=== PATIENT | male | born 1970 | race Caucasian/White ===

== ENCOUNTER 2018-07-30 20:17 | Emergency (ER) | payer OTHER ==
--- NOTE | 2018-07-30 20:22 | EDPHY ---
H & P Time Seen by Provider: 07/30/18 20:23 HPI/ROS: CHIEF COMPLAINT: Nausea and vomiting HISTORY OF PRESENT ILLNESS: Patient is insulin-dependent diabetes felt well this morning and had a normal sugar. When he got home at 5:30 p.m. He was over 400 and then he started having nausea and vomiting for about 2 hr at around 6: 00 p.m.. Glucose was greater than 600 at that time. It is not associated with hematemesis or abdominal pain or chest pain or shortness of breath. No diarrhea. He does feel better now although symptoms were moderate to severe at home. Not better worse with anything. 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 Neuro: no headache Constitutional: no fever : no urinary symptoms A comprehensive 10 point review of systems is otherwise negative aside from elements mentioned in the history of present illness. PAST MEDICAL HISTORY: Consultation by Dr. Gamble dated 08/18/2015 reviewed includes diabetes, appendectomy, ACL repair. Social history: Here with his General Appearance: Alert and conversant, cooperative. Eyes: No scleral icterus. ENT, Mouth: Mildly dry mucous membranes. Respiratory: Normal respiratory effort, breath sounds equal, lungs are clear to auscultation. Cardiovascular: Regular rate and rhythm. Gastrointestinal: Abdomen is soft and non tender. Perirectal area shows induration and old surgical scar but no new erythema or fluctuance or tenderness or drainage. Neurological: Alert, face symmetric, normal motor and sensory in extremities. Skin: Normal except for in perirectal area as above. Musculoskeletal: No peripheral edema. Psychiatric: Not agitated. Emergency Department course/MDM: 2034: PH is 7.36. Normal saline 2 L IV, check glucose and electrolytes, Zofran 4 mg IV. 2049: Glucose 439, 10 units IV insulin discussed with the patient and consented. He thinks this will drop him a reasonable amount, unlikely to overshoot. Message left for Lynette to call ED at this time. Plan to repeat VBG and chem 8 after 3rd liter NS, and insulin. 2124: Discussed with Lynette, glucose less than 200, AG closing, he feels OK then send home. 2220: pH 7.34 with CO2 38, base deficit has gone to 5 from 9. Anion gap is closed, glucose 203, feels well, stable for discharge which is what he wants and I think is reasonable. Constitutional: Initial Vital Signs Temperature (C) 37.1 C 07/30/18 20:23 Heart Rate 104 H 07/30/18 20:23 Respiratory Rate 18 07/30/18 20:23 Blood Pressure 157/106 H 07/30/18 20:23 O2 Sat (%) 95 07/30/18 20:23 O2 Delivery Mode Room Air Allergies/Adverse Reactions: No Known Allergies Allergy (Verified 07/30/18 20:22) Home Medications: Medication Instructions Recorded Subcutaneous Insulin Pump [Insulin 08/21/12 Pump] Medical Decision Making - Diagnostics EKG Interpretation: 12-lead EKG interpreted by me; official reading is in computer system. My interpretation is sinus rhythm, probable early repolarization, no reciprocal changes. Differential Diagnosis: Differential considered including but not limited to gastroenteritis, diabetic ketoacidosis, diabetic hyperglycemia, food poisoning, other metabolic. Critical Care Time: Critical care time spent by me, Dr. Colunga, exclusively with the care of this patient was 30 minutes, exclusive of PA or [employer] time and exclusive of separate procedures. The organ system at risk was metabolic and I ordered IV fluids and IV insulin, IV antiemetics and multiple labs with repeated evaluation to stabilize the patient and prevent worsening of the patient's condition. - Data Points Laboratory Results: 07/30/18 07/30/18 07/30/18 22:16 22:14 20:37 POC Blood Source VENOUS Patient Temperature 37.0 DEGREES DEGREES POC VBG pH 7.34 (7.31-7.42) POC VBG pCO2 38 mmHg L mmHg (40-44) POC VBG pO2 31 mmHg L mmHg (35-40) POC VBG HCO3 21 mEq/L L mEq/L (22-26) POC VBG Total CO2 22 mEq/L mEq/L (21-27) POC VBG Base Excess -5.0 mEq/L L mEq/L (-2.5-2.5) POC Mix VBG O2 Sat 57 % L % (65-75) POC Sodium 135 mEq/L mEq/L 140 mEq/L mEq/L (135-145) (135-145) POC Potassium 4.4 mEq/L mEq/L 4.5 mEq/L mEq/L (3.3-5.0) (3.3-5.0) POC Chloride 107.0 mEq/L mEq/L 97.0 mEq/L mEq/L (97-110) (97-110) POC Total CO2 24 mEq/L mEq/L 17 mEq/L L mEq/L (22-31) (22-31) POC BUN 13 mg/dL mg/dL 15 mg/dL mg/dL (7-23) (7-23) POC Creatinine 1.0 mg/dL mg/dL 0.8 mg/dL mg/dL (0.7-1.3) (0.7-1.3) POC Glucose 203 mg/dL H mg/dL 439 mg/dL H mg/dL (70-100) (70-100) POC Lactic Acid Justin 3.1 mmol/L H mmol/L (0.7-2.1) POC Calcium 8.5 mg/dL mg/dL 9.8 mg/dL mg/dL (8.5-10.4) (8.5-10.4) POC Troponin I 07/30/18 07/30/18 20:34 20:33 POC Blood Source VENOUS Patient Temperature 37.1 DEGREES DEGREES POC VBG pH 7.36 (7.31-7.42) POC VBG pCO2 29 mmHg L mmHg (40-44) POC VBG pO2 50 mmHg H mmHg (35-40) POC VBG HCO3 16 mEq/L L mEq/L (22-26) POC VBG Total CO2 17 mEq/L L mEq/L (21-27) POC VBG Base Excess -9.0 mEq/L L mEq/L (-2.5-2.5) POC Mix VBG O2 Sat 84 % H % (65-75) POC Sodium POC Potassium POC Chloride POC Total CO2 POC BUN POC Creatinine POC Glucose POC Lactic Acid Justin 3.7 mmol/L H mmol/L (0.7-2.1) POC Calcium POC Troponin I 0.00 ng/mL ng/mL (0.00-0.08) Medications Given: Discontinued Medications Sodium Chloride (Ns) 1,000 mls @ 0 mls/hr IV EDNOW ONE; Wide Open PRN Reason: Protocol Stop: 09/18/18 20:28 Last Admin: 07/30/18 20:36 Dose: 1,000 mls Sodium Chloride (Ns) 1,000 mls @ 0 mls/hr IV EDNOW ONE; Wide Open PRN Reason: Protocol Stop: 07/30/18 20:37 Last Admin: 07/30/18 20:52 Dose: 1,000 mls Sodium Chloride (Ns) 1,000 mls @ 0 mls/hr IV EDNOW ONE; Wide Open PRN Reason: Protocol Stop: 07/30/18 21:11 Last Admin: 07/30/18 21:14 Dose: 1,000 mls Insulin Human Regular (Humulin R) 10 unit IVP EDNOW ONE Stop: 07/30/18 20:54 Last Admin: 07/30/18 20:56 Dose: 10 unit Ondansetron HCl (Zofran) 4 mg IVP EDNOW ONE Stop: 07/30/18 20:28 Last Admin: 07/30/18 20:36 Dose: 4 mg Point of Care Test Results: CBC CBC Collection Date 07/30/18 CBC Collection Time 20:22 WBC 15.6 RBC 5.16 HGB 16.8 HCT 47.9 PLT 329 Neut # 13.9 Neut 89.1 LYMPH # 0.7 LYMPH 4.8 Other WBC # 1.0 Other WBC 6.1 MCV 92.8 Chemistry 07/30/18 07/30/18 07/30/18 22:16 20:37 20:33 POC Sodium 135 mEq/L mEq/L 140 mEq/L mEq/L (135-145) (135-145) POC Potassium 4.4 mEq/L mEq/L 4.5 mEq/L mEq/L (3.3-5.0) (3.3-5.0) POC Chloride 107.0 mEq/L mEq/L 97.0 mEq/L mEq/L (97-110) (97-110) POC Total CO2 24 mEq/L mEq/L 17 mEq/L L mEq/L (22-31) (22-31) POC BUN 13 mg/dL mg/dL 15 mg/dL mg/dL (7-23) (7-23) POC Creatinine 1.0 mg/dL mg/dL 0.8 mg/dL mg/dL (0.7-1.3) (0.7-1.3) POC Glucose 203 mg/dL H mg/dL 439 mg/dL H mg/dL (70-100) (70-100) POC Calcium 8.5 mg/dL mg/dL 9.8 mg/dL mg/dL (8.5-10.4) (8.5-10.4) POC Troponin I 0.00 ng/mL ng/mL (0.00-0.08) Blood Gas/Lactic Acid-Arterial 07/30/18 07/30/18 20:34 22:14 POC Blood Source VENOUS VENOUS Blood Gas/Lactic Acid-Venous 07/30/18 07/30/18 22:14 20:34 POC VBG pH 7.34 7.36 (7.31-7.42) (7.31-7.42) POC VBG pCO2 38 mmHg L mmHg 29 mmHg L mmHg (40-44) (40-44) POC VBG pO2 31 mmHg L mmHg 50 mmHg H mmHg (35-40) (35-40) POC VBG HCO3 21 mEq/L L mEq/L 16 mEq/L L mEq/L (22-26) (22-26) POC VBG Total CO2 22 mEq/L mEq/L 17 mEq/L L mEq/L (21-27) (21-27) POC VBG Base Excess -5.0 mEq/L L mEq/L -9.0 mEq/L L mEq/L (-2.5-2.5) (-2.5-2.5) POC Mix VBG O2 Sat 57 % L % 84 % H % (65-75) (65-75) POC Lactic Acid Justin 3.1 mmol/L H mmol/L 3.7 mmol/L H mmol/L (0.7-2.1) (0.7-2.1) Departure - Departure Disposition: Home, Routine, Self-Care Clinical Impression: Hyperglycemia Nausea & vomiting Qualifiers: Vomiting type: unspecified Vomiting Intractability: non-intractable Qualified Code(s): R11.2 - Nausea with vomiting, unspecified Condition: Good Instructions: Ondansetron (By mouth), Acute Nausea and Vomiting (ED) Referrals: Samantha Hackett DO [Primary Care Provider] - As per Instructions Lorena Ojeda MD [Medical Doctor] - 1 day without fail
[2018-07-30] MEDS ORDERED: NS 1,000 ML IV ONE ×3 (20:27→21:10)
[2018-07-30] MEDS ORDERED: ONDANSETRON 4 MG/2 ML VIAL IVP ONE (20:27)
--- NOTE | 2018-07-30 20:46 | CPEKG ---
Test Reason : OPEN Blood Pressure : / mmHG Vent. Rate : 091 BPM Atrial Rate : 091 BPM P-R Int : 159 ms QRS Dur : 095 ms QT Int : 403 ms P-R-T Axes : 062 052 043 degrees QTc Int : [address] elev, probable normal early repol pattern Borderline prolonged QT interval Confirmed by Jenaro Colunga ([id number]) on 07/30/2018 8:46:01 PM Referred By: Confirmed By:Jenaro Colunga
[2018-07-30] MEDS ORDERED: INSULIN REGULAR HUMAN 100 UNIT/ML UNIT IVP ONE (20:53)
[2018-07-30] MEDS ORDERED: ONDANSETRON 4MG PREPACK#2 BTL TAKEHOME ONE (21:17)
[2018-07-30 22:49] VITALS: BP 130/88
== END 2018-07-30 22:47 | disposition home or self-care (01) ==
LOC: CED 20:17
DX: R11.2 Nausea with vomiting, unspecified (principal); E10.65 Type 1 diabetes mellitus with hyperglycemia; E86.9 Volume depletion, unspecified
CPT/HCPCS: 80048-PO; 83605-PO; 84484-PO; 96374; J1815; J2405